=== PATIENT | male | born 1970 | race Hispanic/Latino ===

== ENCOUNTER → 2018-04-27 | Outpatient (CLI) | payer OTHER ==
--- NOTE | 2018-04-27 09:41 | Diagnostic Imaging Report ---
PROCEDURE:ABDOMINAL ULTRASOUND COMPARISON:None. INDICATIONS:elevated liver enzymes FINDINGS: Exam somewhat limited by overlying bowel gas. Liver: Measures 15.8 cm. Increased hepatic parenchymal echogenicity. No focal mass. Main portal vein: Measures 0.9 cm, Hepatopedal flow. Gallbladder: Status post cholecystectomy. Common Bile Duct: Measures 0.2 cm. No echogenic filling defect. Sonographic Chun's sign: Negative. Right kidney: Measures 11.6 cm. No solid or cystic mass, echogenic calculi, or hydronephrosis. Normal parenchymal echogenicity. Left kidney: Measures 12.8 cm. No solid or cystic mass, echogenic calculi, or hydronephrosis. Normal parenchymal echogenicity. Spleen: Measures 11.2 cm. Pancreas: Limited visualization due to overlying bowel gas. Inferior vena cava: Within normal limits. Aorta: Limited visualization due to overlying bowel gas. Ascites: None. CONCLUSION: Hepatic steatosis. Liver size measures at the upper limits of normal. Status post cholecystectomy. Dictated by: KHUSHBOO WILL M.D. on 04/27/2018 at 9:47 Electronically approved by: KHUSHBOO WILL M.D. on 04/27/2018 at 9:47
== END ==
LOC: US 08:10
PROVIDERS: ATTEND Family Medicine
DX: R79.89 Other specified abnormal findings of blood chemistry (principal)
CPT/HCPCS: 76700